=== PATIENT | female | born 1985 | race Caucasian/White ===

== ENCOUNTER 2019-10-18 00:20 | Inpatient (IN) | payer OTHER ==
[2019-10-18] MEDS: ELECTROLYTE-148 SOLN 1,000 ML IV SCH (01:20)
[2019-10-18 02:36] LABS: BASO % 0.3 % (0-2.0); EOS % 0.8 % (0-4.5); HEMATOCRIT 34.9 % (32.4-45.2); LYMPH % 23.1 % (8-40); MCH 31.3 pg (25.7-33.7); MCHC 34.5 g/dl (32.0-36.0); MEAN CELL VOLUME 90.9 fl (80-96); MEAN PLT VOLUME 9.5 fl (7.5-11.1); NEUT % 69.8 % (42.8-82.8); PLATELET COUNT 228 K/MM3 (134-434); RBC 3.84 M/mm3 (3.60-5.2); RDW 13.5 % (11.6-15.6); WHITE BLOOD COUNT 9.8 K/mm3 (4.0-10.0)
[2019-10-18 02:55] LABS: INR 0.89 (0.83-1.09); PROTHROMBIN TIME (PATIENT) 10.5 SEC (9.7-13.0)
[2019-10-18 02:57] LABS: ACTIVATED PTT 26.7 SECONDS (25.2-36.5)
[2019-10-18 03:04] LABS: URIC ACID 4.6 mg/dL (2.6-7.2)
[2019-10-18 03:05] LABS: CALCIUM 9.7 mg/dL (8.5-10.1); CREATININE 0.6 mg/dL (0.55-1.3); POTASSIUM 3.9 mmol/L (3.5-5.1)
[2019-10-18 03:38] VITALS: BMI 30.1
[2019-10-18] MEDS ORDERED: CITRIC ACID/SODIUM CITRATE 30 ML UNIT-DOSE CUP PO ONE ×2 (06:45→09:47)
[2019-10-18] MEDS ORDERED: OXYTOCIN 20 UNITS in 0.9% NS 20 UNIT/1,000 ML INFUS.BAG IV ONE ×2 (07:49→09:32)
[2019-10-18] MEDS ORDERED: OXYTOCIN 10 UNITS/ML VIAL ONE (07:49)
[2019-10-18] MEDS ORDERED: SUCCINYLCHOLINE CHLORIDE 200 MG/10 ML SYRINGE ONE (07:57)
[2019-10-18] MEDS ORDERED: PROPOFOL 20 ML ONE (07:57)
[2019-10-18] MEDS ORDERED: morphine SULFATE/PF 0.5 MG/ML (2cc Syringe - QUVA) ONE (07:57)
[2019-10-18] MEDS ORDERED: ceFAZolin SODIUM 1 GM VIAL ONE (07:58)
[2019-10-18] MEDS ORDERED: PHENYLEPHRINE HCL 10 MG/1 ML SINGLE DOSE VIAL ONE (07:58)
[2019-10-18] MEDS ORDERED: ePHEDrine SULFATE 50 MG/1 ML AMPULE ONE (07:58)
[2019-10-18] MEDS ORDERED: SODIUM CHLORIDE 0.9% P/F 10 ML VIAL IJ ONE (08:05)
[2019-10-18] MEDS ORDERED: KETOROLAC TROMETHAMINE 30 MG/1 ML VIAL ONE (08:53)
[2019-10-18] MEDS ORDERED: ONDANSETRON 4 MG/2 ML VIAL IVPUSH PRN (09:08)
[2019-10-18] MEDS ORDERED: morphine SULFATE/PF 0.5 MG/ML (2cc Syringe - QUVA) EP ONE (09:08)
[2019-10-18] MEDS ORDERED: ACETAMINOPHEN 325 MG TABLET (FP) PO PRN (09:49)
[2019-10-18] MEDS ORDERED: METHYLERGONOVINE MALEATE 0.2 MG/1 ML AMP IM PRN (09:49)
[2019-10-18] MEDS ORDERED: oxyCODONE HCL 5 MG TABLET PO PRN ×2 (09:49)
[2019-10-18] MEDS ORDERED: IBUPROFEN 600 MG TABLET (FP) PO PRN (09:49)
[2019-10-18] MEDS ORDERED: IBUPROFEN 800 MG/8 ML IJ IVPB PRN (09:49)
--- NOTE | 2019-10-18 09:57 | HP ---
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: No: Alzheimer's, CVA, Dementia, Migraine, Multiple Sclerosis, Peripheral Neuropathy, Parkinson's, Seizure, Syncope, TIA, Vertigo, Other Cardiovascular: No: AFIB, Aneurysm, Aortic Insufficiency, Aortic Stenosis, CAD, CHF, Deep Vein Thrombosis, HTN, Hyperlipdemia, [place], Mitral Insufficiency, Mitral Stenosis, Murmur, Pulmonary Hypertension, Other Pulmonary: No: Asthma, Bronchitis, Cancer, COPD, O2 Dependent, Pneumonia, Previously Intubated, Pulmonary Embolus, Pulmonary Fibrosis, Sleep Apnea, Other Gastrointestinal: No: Ascites, Cancer, Constipation, Crohn's Disease, Diverticulitis, Diverticulosis, Esophageal Varices, Gastritis, GERD, GI Bleed, Hemorrhoids, Hiatal Hernia, Inflamatory Bowel Disease, Irritable Bowel Disease, Pancreatitis, Peptic Ulcer Disease, Ulcerative Colitis, Other Hepatobiliary: No: Cirrhosis, Cholelithiasis, Cholecystitis, Choledocholithiasis , Hepatitis A, Hepatitis B, Hepatitis C, Other Renal/: No: Renal Failure, Renal Inusuff, BPH, Cancer, Hematuria, Hemodialysis , Neurogenic Bladder, Renal Calculi, UTI, Other Reproductive: No: Ectopic , Endometriosis, Fibroids, PID, Polycystic Ovary Syndrome, Postmenopausal, Other ...: 4 ...Para: 0 ...Term: 0 ...: 0 ...Spon : 0 ...Induced : 3 ...Multiple Gestation: 0 ...LMP: 01/24/19 ... Weeks Gestation by Dates: 38.2 ...EDC by Dates: 10/30/19 Heme/Onc: No: Anemia, B12 Deficiency, Bleeding Disorder, Cancer, Current Chemotherapy, Current Radiation Therapy, Hemochromatosis, Hypercoaguable State, Myeloproliferative Synd, Sickle Cell Disease, Sickle Cell Trait, Thrombocytopenia, Other Infectious Disease: No: AIDS, C-Diff, Herpes Zoster, HIV, MRSA, STD's, Tuberculosis, VREF, Other Psych: No: Addictions, Anxiety, Bipolar, Depression, Panic, Psychosis, Schizophrenia, Other Musculoskeletal: No: Bursitis, Chronic low back pain, Hemiparesis, Hemiplegia, Osteoarthritis, Paraplegia, Other Rheumatology: No: Fibromyalgia, Gout, Lupus, Rheumatoid Arthritis, Sarcoidosis, Vasculitis, Other ENT: No: Allergic Rhinitis, Sinusitis, Other Endocrine: No: Laporte's Disease, Emmalena's Disease, Diabetes Insipidus, Diabetes Mellitus, Hyperparathyroidism, Hyperthyroidism, Hypothyroidism, Osteopenia, SIADH, Other Dermatology: No: Basal Cell, Cellulitis, Eczema, Melanoma, Psoriasis, Squamous Cell, Other - Past Surgical History Past Surgical History: Yes: None Hx Myomectomy: No Hx Transabdominal Cerclage: No - Advance Directives Advance Directives: Yes: Living Will - Smoking History Smoking history: Unknown if ever smoked - Alcohol/Substance Use Hx Alcohol Use: No History of Substance Use: reports: None - Social History Usual Living Arrangement: Yes: With Significant Other Do you think of yourself as: Straight/Heterosexual ADL: Independent History of Recent Travel: No Home Medications - Allergies Allergies/Adverse Reactions: Allergies Allergy/AdvReac Type Severity Reaction Status Date / Time codeine AdvReac Verified 10/18/19 03:43 - Home Medications Home Medications: Ambulatory Orders Vitamins (Sjr) - 1 tab PO DAILY 10/18/19 Family Medical History Family History: Denies Review of Systems - Review of Systems Constitutional: reports: No Symptoms Eyes: reports: No Symptoms HENT: reports: No Symptoms Neck: reports: No Symptoms Cardiovascular: reports: No Symptoms Respiratory: reports: No Symptoms Gastrointestinal: reports: No Symptoms Genitourinary: reports: No Symptoms Breasts: reports: No Symptoms Reported Musculoskeletal: reports: No Symptoms Integumentary: reports: No Symptoms Neurological: reports: No Symptoms Endocrine: reports: No Symptoms Hematology/Lymphatic: reports: No Symptoms Psychiatric: reports: No Symptoms Physical Exam - Maternity Vital Signs: Vital Signs Temperature 98.2 F 10/18/19 07:30 Pulse Rate 64 10/18/19 07:30 Respiratory Rate 20 10/18/19 07:30 Blood Pressure 138/80 10/18/19 07:30 O2 Sat by Pulse Oximetry (%) Constitutional: Yes: Well Nourished, No Distress, Calm Eyes: Yes: WNL, Conjunctiva Clear, EOM Intact HENT: Yes: WNL, Atraumatic, Normocephalic Neck: Yes: WNL, Supple, Trachea Midline Cardiovascular: Yes: WNL, Regular Rate and Rhythm Lungs: Clear to auscultation Breast(s): Yes: WNL - Abdominal Exam/OB Fundal Height: 36 Number of Fetuses: Single Presentation: Breech Contractions: Yes Regularity: Irregular Intensity: Unaware Monitor Mode: External Heart Rate Location: [facility] Category: I Accelerations: Uniform Decelerations: None - Vaginal Exam/OB Vaginal Bleediing: No Speculum Exam: No Dilatation (cm): 1 Effacement (%): 20 Amniotic Membrane Status: Leaking Nitrazine Test: Positive Amniotic Fluid: Yes: Clear Presentation: Zach Breech Station: -2 - Physical Exam Musculoskeletal: Yes: WNL Extremities: Yes: WNL Edema: Yes Edema: LUE: 1+, RUE: 1+, LLE: 1+, RLE: 1+ Integumentary: Yes: WNL Deep Tendon Reflex Grade: Normal +2 ...Motor Strength: WNL Psychiatric: Yes: WNL, Alert, Oriented - Labs Lab Results: CBC, BMP 10/18/19 02:00 10/18/19 02:00 Hemorrhage Risk Assessment - Risk Factors Medium Risk Factors: Yes: None High Risk Factors: Yes: None Risk Score: 1 Risk Level: Medium Risk Assessment/Plan for c s as breech , srom
--- NOTE | 2019-10-18 09:59 | OP ---
Operative Note - Note: Operative Date: 10/18/19 Pre-Operative Diagnosis: breech in labor, srom Operation: primary lt c s Findings: leidy breech Post-Operative Diagnosis: Same as Pre-op Surgeon: Kei Carmen Knot Picker Cloth: Dae Cochran Anesthesiologist/BUSINESS SERVICES OFFICER: Griselda Cerda Anesthesia: Spinal Estimated Blood Loss (mls): 600 (no complications ) Operative Report Dictated: Yes
[2019-10-18] MEDS: OXYTOCIN 20 UNITS in 0.9% NS 20 UNIT/1,000 ML INFUS.BAG IV SCH (11:30)
[2019-10-18] MEDS ORDERED: ELECTROLYTE-148 SOLN 500 ML IV ONE (12:20)
[2019-10-18 12:53] LABS: POC NITRAZINE POS
[2019-10-18] MEDS ORDERED: SENNOSIDES/DOCUSATE COMBO (SENNA PLUS) TABLET (UD) PO PRN (22:00)
[2019-10-19] MEDS: IBUPROFEN 600 MG TABLET (FP) PO PRN ×3 (07:50→21:56)
[2019-10-19] MEDS: ACETAMINOPHEN 325 MG TABLET (FP) PO PRN ×3 (07:51→21:55)
[2019-10-19 08:13] LABS: BASO % 0.2 % (0-2.0); HEMATOCRIT 30.1 % (32.4-45.2); HEMOGLOBIN 10.4 GM/dL (10.7-15.3); MCH 31.7 pg (25.7-33.7); MCHC 34.4 g/dl (32.0-36.0); MEAN CELL VOLUME 92.2 fl (80-96); MEAN PLT VOLUME 9.1 fl (7.5-11.1); NEUT % 72.8 % (42.8-82.8); PLATELET COUNT 168 K/MM3 (134-434); RBC 3.26 M/mm3 (3.60-5.2); RDW 13.6 % (11.6-15.6); WHITE BLOOD COUNT 9.5 K/mm3 (4.0-10.0)
[2019-10-19] MEDS ORDERED: BISACODYL 10 MG SUPP.RECT RC PRN (09:49)
[2019-10-19] MEDS: ENOXAPARIN NA (PORCINE) 40 MG/0.4 ML DISP.SYRIN SQ SCH (10:36)
--- NOTE | 2019-10-19 13:40 | PN ---
Progress Note (short form) - Note Progress Note: Anesthesia postop note 34 y/o F s/p spinal anesthesia/duramorph for section POD#1, vss, aaox3, pain well controlled, sensory motor intact distally. No anesthesia complications.
--- NOTE | 2019-10-19 16:26 | PATH ---
Surgical Pathology Report Patient Name: SIMÓN CHILD Med. Rec. 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 Electronically Signed Conchita Pandey M.D. Gross Description The specimen is received fresh labeled placenta and is a 601 gram, 17.5 x 16.0 x 3.0 cm. placenta with attached membranes and umbilical cord. The attached membranes are gomez, translucent with focal opacities and insert marginally. The umbilical cord measures 42 cm. in length and averages 1 cm. in diameter. The cord inserts eccentrically, 3 cm. to the nearest margin. No true knots or strictures are identified. Cut surface of the umbilical cord reveals 3 vessels. The surface is berumen-blue with minimal fibrin deposition and appropriate caliber vessels. The maternal surface is red-brown with focal defects. Sectioning reveals red-brown, spongy parenchyma with moderate calcifications. No lesions are identified. Maternity Nurse sections are submitted in three cassettes as follows: 1- membrane rolls and umbilical cord; 2-3- full thickness sections of placenta. /10/18/2019 saudi/10/18/2019
[2019-10-19] MEDS: ELECTROLYTE-148 SOLN 1,000 ML IV SCH (17:20)
[2019-10-19] MEDS: OXYTOCIN 20 UNITS in 0.9% NS 20 UNIT/1,000 ML INFUS.BAG IV SCH (17:21)
--- NOTE | 2019-10-19 20:14 | PN ---
Post Progress Note Post Day: 1 Type of Delivery: Primary C/S Vital Signs: Vital Signs Temperature 98.0 F 10/19/19 10:00 Pulse Rate 66 10/19/19 10:00 Respiratory Rate 18 10/19/19 11:00 Blood Pressure 132/70 10/19/19 10:00 O2 Sat by Pulse Oximetry (%) 100 10/18/19 10:15 Breast Exam: Yes: Soft Uterus: Yes: Fundus Firm, Fundus below umbilicus, Non-tender (dc iv fluid, regular diet today ) Incision: Yes: Dressing dry and intact, Sutures intact Abdomen/GI: Yes: Abdomen soft, Passing flatus, Tolerating PO Lochia: Yes: Serosa Lochia, amount: Small Extremities: Yes: Calves non-tender Perineum: Yes: Intact Activity: Ambulating - Labs Labs: CBC WBC 9.5 K/mm3 (4.0-10.0) 10/19/19 07:38 RBC 3.26 M/mm3 (3.60-5.2) L 10/19/19 07:38 Hgb 10.4 GM/dL (10.7-15.3) L 10/19/19 07:38 Hct 30.1 % (32.4-45.2) L 10/19/19 07:38 MCV 92.2 fl (80-96) 10/19/19 07:38 MCH 31.7 pg (25.7-33.7) 10/19/19 07:38 MCHC 34.4 g/dl (32.0-36.0) 10/19/19 07:38 RDW 13.6 % (11.6-15.6) 10/19/19 07:38 Plt Count 168 K/MM3 (134-434) D 10/19/19 07:38 MPV 9.1 fl (7.5-11.1) 10/19/19 07:38 Absolute Neuts (auto) 6.9 K/mm3 (1.5-8.0) 10/19/19 07:38 Neutrophils % 72.8 % (42.8-82.8) 10/19/19 07:38 Lymphocytes % 20.0 % (8-40) 10/19/19 07:38 Monocytes % 6.0 % (3.8-10.2) 10/19/19 07:38 Eosinophils % 1.0 % (0-4.5) 10/19/19 07:38 Basophils % 0.2 % (0-2.0) 10/19/19 07:38 Nucleated RBC % 0 % (0-0) 10/19/19 07:38 Retic Count 1.70 % (0.5-1.5) H 10/18/19 02:00 Haptoglobin 82 mg/dL (33-278) 10/18/19 11:11
[2019-10-19] MEDS: SIMETHICONE 80 MG TAB.CHEW (FP) PO PRN (21:57)
--- NOTE | 2019-10-19 23:04 | OP ---
DATE OF OPERATION: 10/18/2019 PREOPERATIVE DIAGNOSIS: Breech in mild labor status post spontaneous rupture of membrane. POSTOPERATIVE DIAGNOSIS: Leidy breech presentation. PROCEDURE: Primary low transverse section. SURGEON: Amanda Rodriguez MD. HEEL SANDER: ELLEN Peng. ANESTHESIOLOGIST: Griselda Cerda MD. ANESTHESIA: Spinal anesthesia. INDICATION: This is a 34-year-old female patient, 38 weeks and 2 days , was seen in office today on October 18 and came into the hospital spontaneous rupture of membranes on October 17 and then came into the hospital with spontaneous rupture of membranes, in no pain and no labor. Patient was observed in the hospital over 7 hours timeframe, and patient was taken to the OR for in the morning. DESCRIPTION OF PROCEDURE: Patient was taken to the OR and was placed on operating table in supine position after spinal anesthesia was obtained. The patient's abdomen and pelvis were prepped and draped in the usual sterile manner. Pfannenstiel incision was made. The incision was made through skin, subcutaneous tissue, until the fascia was nicked in the midline. The fascia was extended bilaterally. Intraperitoneal cavity was entered, bladder flap was created. Low transverse section of uterus was entered, baby delivered from leidy breech presentation. Baby was handed over to the security installer after umbilical cord was doubly clamped and cut. Cord blood gas was obtained. Placenta was removed. Uterus was closed in single layer, good hemostasis, and both gutters clean. Both ovaries, fallopian tubes, uterus were within normal limits, and both ovaries were very atrophic. Other than that, no complications. Bladder flap was closed. Peritoneum was closed. Fascia was closed. Good hemostasis draining clear urine. Blood loss was about 600 mL. Transferred to recovery room in stable condition. AMANDA RODRIGUEZ MD [id number]
[2019-10-20] MEDS: SIMETHICONE 80 MG TAB.CHEW (FP) PO PRN ×3 (05:56→18:28)
[2019-10-20] MEDS: IBUPROFEN 600 MG TABLET (FP) PO PRN ×3 (05:56→18:28)
[2019-10-20] MEDS: ACETAMINOPHEN 325 MG TABLET (FP) PO PRN ×3 (05:57→18:28)
--- NOTE | 2019-10-20 08:49 | PN ---
Post Progress Note Post Day: 2 Type of Delivery: Primary C/S Vital Signs: Vital Signs Temperature 97.5 F L 10/20/19 07:45 Pulse Rate 58 L 10/20/19 07:45 Respiratory Rate 18 10/20/19 07:45 Blood Pressure 141/77 10/20/19 07:45 O2 Sat by Pulse Oximetry (%) 100 10/18/19 10:15 Breast Exam: Yes: Soft Uterus: Yes: Fundus Firm, Fundus below umbilicus, Non-tender Incision: Yes: Dressing dry and intact, Sutures intact Abdomen/GI: Yes: Abdomen soft, Passing flatus, Tolerating PO Lochia: Yes: Serosa Lochia, amount: Small Extremities: Yes: Calves non-tender Perineum: Yes: Intact Activity: Ambulating - Labs Labs: CBC WBC 9.5 K/mm3 (4.0-10.0) 10/19/19 07:38 RBC 3.26 M/mm3 (3.60-5.2) L 10/19/19 07:38 Hgb 10.4 GM/dL (10.7-15.3) L 10/19/19 07:38 Hct 30.1 % (32.4-45.2) L 10/19/19 07:38 MCV 92.2 fl (80-96) 10/19/19 07:38 MCH 31.7 pg (25.7-33.7) 10/19/19 07:38 MCHC 34.4 g/dl (32.0-36.0) 10/19/19 07:38 RDW 13.6 % (11.6-15.6) 10/19/19 07:38 Plt Count 168 K/MM3 (134-434) D 10/19/19 07:38 MPV 9.1 fl (7.5-11.1) 10/19/19 07:38 Absolute Neuts (auto) 6.9 K/mm3 (1.5-8.0) 10/19/19 07:38 Neutrophils % 72.8 % (42.8-82.8) 10/19/19 07:38 Lymphocytes % 20.0 % (8-40) 10/19/19 07:38 Monocytes % 6.0 % (3.8-10.2) 10/19/19 07:38 Eosinophils % 1.0 % (0-4.5) 10/19/19 07:38 Basophils % 0.2 % (0-2.0) 10/19/19 07:38 Nucleated RBC % 0 % (0-0) 10/19/19 07:38 Retic Count 1.70 % (0.5-1.5) H 10/18/19 02:00 Haptoglobin 82 mg/dL (33-278) 10/18/19 11:11 Other Findings, Remarks: doing well, dc pt home tomorrow
[2019-10-20] MEDS: ENOXAPARIN NA (PORCINE) 40 MG/0.4 ML DISP.SYRIN SQ SCH (10:31)
--- NOTE | 2019-10-20 22:35 | DS ---
Physical Exam-MED SURG RN Vital Signs: Vital Signs Temperature 97.5 F L 10/20/19 07:45 Pulse Rate 58 L 10/20/19 07:45 Respiratory Rate 18 10/20/19 07:45 Blood Pressure 141/77 10/20/19 07:45 O2 Sat by Pulse Oximetry (%) 100 10/18/19 10:15 Constitutional: Yes: Well Nourished, No Distress, Calm Eyes: Yes: WNL, Conjunctiva Clear, EOM Intact HENT: Yes: WNL, Atraumatic, Normocephalic Neck: Yes: WNL, Supple, Trachea Midline Cardiovascular: Yes: WNL, Regular Rate and Rhythm Respiratory: Yes: WNL, Regular, CTA Bilaterally Gastrointestinal: Yes: WNL, Normal Bowel Sounds, Soft ...Rectal Exam: Yes: WNL Renal/: Yes: WNL Pelvis: Yes: WNL External Genitalia: Yes: Normal Internal Exam Deferred: No Vaginal Exam: Yes: Normal Cervix: Yes: Normal Uterus: Yes: Normal Adnexa: Normal: Bilateral ....Post : Yes: Uterus firm, Uterus non-tender Breast(s): Yes: WNL Musculoskeletal: Yes: WNL Extremities: Yes: WNL Edema: Yes Edema: LUE: 1+, RUE: 1+, LLE: 1+, RLE: 1+ Integumentary: Yes: WNL Wound/Incision: Yes: Clean/Dry, Well Approximated Neurological: Yes: WNL, Alert, Oriented ...Motor Strength: WNL Psychiatric: Yes: WNL, Alert, Oriented Labs: CBC, BMP 10/19/19 07:38 10/18/19 02:00 Delivery - Delivery Section: Primary Type of Anesthesia: Spinal Episiotomy/Laceration: None EBL (cc): 600 Delivery, Single - Stages of Labor Date of Delivery: 10/18/19 Time of Delivery: 08:35 Time Placenta Delivered: 08:36 Placenta: Yes: Spontaneous - Condition of Infant Travel Nurse/Senior Rd Engineer Present: Yes Name: Rosa Maria Elam Infant Gender: Female Weight: 2.863 kg Total Hours ROM (Hrs/Mins): 8h49m - 1 Minute Total Score: 9 5 Minutes Total Score: 9 - [place] Feeding Plan Initial Plan: Elected not to breastfeed exclusively throughout hospitalization Discharge Summary Problems reviewed: Yes Reason For Visit: LABOR ADMIT Procedures: Principal: primary lt cs Other Procedures: none Hospital Course: uneventful Health Concerns: none Plan of Treatment: oob as much as possible Goals: return to work in 8 weeks Condition: Good - Instructions Diet, Activity, Other Instructions: Physical activity Resume your normal everyday activity as tolerated no heavy lifting or exercise until seen by your surgeon. You may walk unlimited hannah of and climb stairs. You may resume driving the car when you feel safe and comfortable behind the wheel. No sexual activity as instructed. Wound care If you have a bandage, leave it on, and keep dry for 48-72 hours. After that time discard the outer bandage. If they are tapes on the skin under the out of bandage leave them in place. They will peel off in the next 7 to 10 days. Do Not Peel them off. You may shower the day after surgery. If there are tapes present on the skin, you may shower over them. Diet There are no dietary restrictions. Eat healthy, high-fiber foods. Drink 6 to 8 glasses of liquid each day. This will assist in keeping your bowels are regular. Pain management You may take Tylenol or acetaminophen or Ibuprofen (for example, Motrin, Advil etc.) from my pain prescription medication is ordered should be taken as prescribed for moderate to severe pain. Call MD for any of the following:call dr. barragan for 2 weeks appointment Severe pain not relieved by medication Fever of 101 or higher Excessive bleeding or drainage on dressing Inability to urinate Disposition: HOME - Home Medications Comprehensive Discharge Medication List: Ambulatory Orders Vitamins (Sjr) - 1 tab PO DAILY 10/18/19
[2019-10-21] MEDS: SIMETHICONE 80 MG TAB.CHEW (FP) PO PRN ×2 (02:03→09:20)
[2019-10-21] MEDS: IBUPROFEN 600 MG TABLET (FP) PO PRN ×2 (02:04→09:19)
[2019-10-21] MEDS: ACETAMINOPHEN 325 MG TABLET (FP) PO PRN ×2 (02:04→09:20)
--- NOTE | 2019-10-21 07:38 | PN ---
Post Progress Note Post Day: 3 Type of Delivery: Primary C/S Vital Signs: Vital Signs Temperature 97.8 F 10/20/19 22:00 Pulse Rate 62 10/20/19 22:00 Respiratory Rate 20 10/20/19 22:00 Blood Pressure 132/70 10/20/19 22:00 O2 Sat by Pulse Oximetry (%) 100 10/18/19 10:15 Breast Exam: Yes: Soft Uterus: Yes: Fundus Firm, Fundus below umbilicus, Non-tender Incision: Yes: Dressing dry and intact, Sutures intact Abdomen/GI: Yes: Abdomen soft, Passing flatus, Tolerating PO Lochia: Yes: Serosa Lochia, amount: Small Extremities: Yes: Calves non-tender Perineum: Yes: Intact Activity: Ambulating (dc pt home today ) - Labs Labs: CBC WBC 9.5 K/mm3 (4.0-10.0) 10/19/19 07:38 RBC 3.26 M/mm3 (3.60-5.2) L 10/19/19 07:38 Hgb 10.4 GM/dL (10.7-15.3) L 10/19/19 07:38 Hct 30.1 % (32.4-45.2) L 10/19/19 07:38 MCV 92.2 fl (80-96) 10/19/19 07:38 MCH 31.7 pg (25.7-33.7) 10/19/19 07:38 MCHC 34.4 g/dl (32.0-36.0) 10/19/19 07:38 RDW 13.6 % (11.6-15.6) 10/19/19 07:38 Plt Count 168 K/MM3 (134-434) D 10/19/19 07:38 MPV 9.1 fl (7.5-11.1) 10/19/19 07:38 Absolute Neuts (auto) 6.9 K/mm3 (1.5-8.0) 10/19/19 07:38 Neutrophils % 72.8 % (42.8-82.8) 10/19/19 07:38 Lymphocytes % 20.0 % (8-40) 10/19/19 07:38 Monocytes % 6.0 % (3.8-10.2) 10/19/19 07:38 Eosinophils % 1.0 % (0-4.5) 10/19/19 07:38 Basophils % 0.2 % (0-2.0) 10/19/19 07:38 Nucleated RBC % 0 % (0-0) 10/19/19 07:38 Retic Count 1.70 % (0.5-1.5) H 10/18/19 02:00 Haptoglobin 82 mg/dL (33-278) 10/18/19 11:11
[2019-10-21 09:00] VITALS: PULSE 52; TEMP 98
[2019-10-21] MEDS: ENOXAPARIN NA (PORCINE) 40 MG/0.4 ML DISP.SYRIN SQ SCH (09:14)
[2019-10-21] MEDS ORDERED: NIFEdipine E.R. 30 MG TABLET PO ONE (10:00)
[2019-10-21 13:10] VITALS: BP 150/80
== END 2019-10-21 15:10 | disposition home or self-care (01) | DRG 788 ==
LOC: JLDR 00:20 → J3W 10:50
PROVIDERS: ADMIT Obstetrics & Gynecology; ATTEND Obstetrics & Gynecology
PROC: 10D00Z1 Extraction of Products of Conception, Low, Open Approach (ICD-10-PCS; principal; 2019-10-18)
DX: O32.1XX0 Maternal care for breech presentation, not applicable or unspecified (principal); Z3A.38 38 weeks gestation of pregnancy; Z37.0 Single live birth
CPT/HCPCS: 36415; 80048; 82977; 83010; 83986-QW; 84450; 84460; 84550; 85025; 85044; 85610; 85730; 86593; 86850; 86900; 86901; 87389

== ENCOUNTER 2021-01-31 15:00 | Inpatient (IN) | payer OTHER ==
[2021-01-31] MEDS ORDERED: CITRIC ACID/SODIUM CITRATE 30 ML UNIT-DOSE CUP PO ONE (18:17)
[2021-01-31] MEDS ORDERED: ELECTROLYTE-148 SOLN 500 ML IV ONE (18:17)
[2021-01-31] MEDS ORDERED: ELECTROLYTE-148 SOLN 1,000 ML IV SCH (18:30)
[2021-01-31] MEDS ORDERED: morphine SULFATE/PF 0.5 MG/ML (2cc Syringe - QUVA) ONE (18:52)
[2021-01-31] MEDS ORDERED: ceFAZolin SODIUM 1 GM VIAL ONE (18:58)
[2021-01-31] MEDS ORDERED: SODIUM CHLORIDE 0.9% P/F 10 ML VIAL IJ ONE (18:58)
[2021-01-31] MEDS ORDERED: ePHEDrine SULFATE 50 MG/1 ML AMPULE ONE (19:15)
[2021-01-31] MEDS ORDERED: OXYTOCIN 10 UNITS/ML VIAL ONE ×2 (19:19→19:30)
[2021-01-31] MEDS ORDERED: ONDANSETRON 4 MG/2 ML VIAL ONE ×2 (19:33→19:35)
[2021-01-31] MEDS ORDERED: DEXAMETHASONE SOD PHOSPHATE 4 MG/1 ML VIAL ONE (19:33)
[2021-01-31] MEDS ORDERED: KETOROLAC TROMETHAMINE 30 MG/1 ML VIAL ONE (19:33)
[2021-01-31] MEDS ORDERED: OXYTOCIN 20 UNITS in 0.9% NS 20 UNIT/1,000 ML INFUS.BAG IV ONE ×2 (20:14→21:22)
[2021-01-31] MEDS ORDERED: morphine SULFATE/PF 0.5 MG/ML (2cc Syringe - QUVA) EP ONE (20:26)
[2021-01-31] MEDS ORDERED: ONDANSETRON 4 MG/2 ML VIAL IVPUSH PRN (20:26)
[2021-01-31] MEDS ORDERED: SENNOSIDES/DOCUSATE COMBO (SENNA PLUS) TABLET (UD) PO PRN (20:28)
[2021-01-31] MEDS ORDERED: IBUPROFEN 800 MG/8 ML IJ IVPB PRN (20:28)
[2021-01-31] MEDS ORDERED: IBUPROFEN 600 MG TABLET (FP) PO PRN (20:28)
[2021-01-31] MEDS ORDERED: METHYLERGONOVINE MALEATE 0.2 MG/1 ML AMP IM PRN (20:28)
[2021-01-31] MEDS ORDERED: oxyCODONE HCL 5 MG TABLET PO PRN ×2 (20:28)
[2021-01-31] MEDS ORDERED: OXYTOCIN 20 UNITS in 0.9% NS 20 UNIT/1,000 ML INFUS.BAG IV SCH (20:30)
[2021-01-31 21:09] VITALS: BMI 31.2
[2021-02-01 09:27] LABS: BASO % 0.1 % (0-2.0); EOS % 0.1 % (0-4.5); HEMATOCRIT 30.7 % (32.4-45.2); HEMOGLOBIN 10.5 GM/dL (10.7-15.3); LYMPH % 19.2 % (8-40); MCH 31.5 pg (25.7-33.7); MCHC 34.3 g/dl (32.0-36.0); MEAN CELL VOLUME 92.1 fl (80-96); MEAN PLT VOLUME 8.3 fl (7.5-11.1); MONO % 5.5 % (3.8-10.2); NEUT % 75.1 % (42.8-82.8); PLATELET COUNT 217 K/MM3 (134-434); RBC 3.33 M/mm3 (3.60-5.2); RDW 13.4 % (11.6-15.6); WHITE BLOOD COUNT 11.9 K/mm3 (4.0-10.0)
[2021-02-01] MEDS: PRENATAL VITAMINS W/ FOLIC ACID TABLET (FP) PO SCH (10:57)
[2021-02-01] MEDS: SIMETHICONE 80 MG TAB.CHEW (FP) PO PRN (17:10)
[2021-02-01] MEDS: ACETAMINOPHEN 325 MG TABLET (FP) PO PRN (17:10)
[2021-02-01] MEDS: IBUPROFEN 600 MG TABLET (FP) PO PRN (17:10)
[2021-02-01] MEDS ORDERED: BISACODYL 10 MG SUPP.RECT RC PRN (20:28)
[2021-02-02] MEDS: ACETAMINOPHEN 325 MG TABLET (FP) PO PRN ×3 (08:09→23:10)
[2021-02-02] MEDS: SIMETHICONE 80 MG TAB.CHEW (FP) PO PRN ×3 (08:09→23:10)
[2021-02-02] MEDS: IBUPROFEN 600 MG TABLET (FP) PO PRN ×2 (08:09→16:03)
[2021-02-02] MEDS: PRENATAL VITAMINS W/ FOLIC ACID TABLET (FP) PO SCH (10:29)
[2021-02-03] MEDS: IBUPROFEN 600 MG TABLET (FP) PO PRN ×2 (07:44→12:30)
[2021-02-03] MEDS: ACETAMINOPHEN 325 MG TABLET (FP) PO PRN ×2 (07:45→12:30)
[2021-02-03] MEDS: PRENATAL VITAMINS W/ FOLIC ACID TABLET (FP) PO SCH (09:44)
[2021-02-03 14:35] VITALS: BP 135/84; PULSE 68; TEMP 96.6
== END 2021-02-03 12:45 | disposition home or self-care (01) | DRG 787 ==
LOC: JLDR 17:30 → J3W 21:56 → J3CN 22:49 → J3W 22:59
PROVIDERS: ADMIT Obstetrics & Gynecology; ATTEND Obstetrics & Gynecology
PROC: 10D00Z1 Extraction of Products of Conception, Low, Open Approach (ICD-10-PCS; principal; 2021-01-31)
DX: O34.211 Maternal care for low transverse scar from previous cesarean delivery (principal); O44.43 Low lying placenta NOS or without hemorrhage, third trimester; O36.5930 Maternal care for other known or suspected poor fetal growth, third trimester, not applicable or unspecified; Z3A.38 38 weeks gestation of pregnancy; Z37.0 Single live birth
CPT/HCPCS: 36415; 85025; 86850; 86900; 86901